=== PATIENT | male | born 2000 | race Two or more races ===

== ENCOUNTER 2018-08-30 20:13 | Emergency (ER) | payer SELFPAY ==
[~2018-08-30] VITALS: Ht 180.3 cm; Wt 97.0 kg
[2018-08-30] MEDS ORDERED: IBUPROFEN 600MG TABLET PO ONE (22:45)
[2018-08-31 00:25] VITALS: BP 122/65
== END 2018-08-31 00:27 | disposition home or self-care (01) ==
LOC: ER 20:13
DX: M72.2 Plantar fascial fibromatosis (principal); Z88.0 Allergy status to penicillin; Z98.890 Other specified postprocedural states
CPT/HCPCS: 73630; 99283